=== PATIENT | male | born 1995 | race Asian ===

== ENCOUNTER 2020-02-12 15:03 | Outpatient (REF) | payer OTHER, SELFPAY | END 2020-02-12 15:04 | disposition home or self-care (01) | LOC: HO.LAB 15:03 | PROVIDERS: Visit Provider Internal Medicine | DX: Z20.828 Contact with and (suspected) exposure to other viral communicable diseases (principal) | CPT/HCPCS: C9803; U0003 ==

== ENCOUNTER 2020-03-16 10:52 | Outpatient (REF) | payer OTHER, SELFPAY | END 2020-03-16 10:53 | disposition home or self-care (01) | LOC: HO.LAB 10:52 | PROVIDERS: Visit Provider Internal Medicine | DX: Z20.822 Contact with and (suspected) exposure to COVID-19 (principal) | CPT/HCPCS: 36415; C9803; U0003 ==

== ENCOUNTER 2020-04-01 10:30 | Outpatient (REF) | payer OTHER, SELFPAY | END 2020-04-01 10:31 | disposition home or self-care (01) | LOC: HO.LAB 10:30 | PROVIDERS: Visit Provider Internal Medicine | DX: Z20.822 Contact with and (suspected) exposure to COVID-19 (principal) | CPT/HCPCS: 36415; C9803; U0003 ==

== ENCOUNTER 2020-04-14 16:57 | Outpatient (REF) | payer OTHER, SELFPAY | END 2020-04-14 16:58 | disposition home or self-care (01) | LOC: HO.LAB 16:57 | PROVIDERS: Visit Provider Internal Medicine | DX: Z20.822 Contact with and (suspected) exposure to COVID-19 (principal) | CPT/HCPCS: 36415; C9803; U0003; U0005 ==